=== PATIENT | male | born 1985 | race Caucasian/White ===

== ENCOUNTER 2020-08-03 12:48 | Emergency (ER) | payer BC ==
--- NOTE | 2020-08-03 14:53 | CT ---
EXAMINATION TYPE: CT soft tissue neck w con DATE OF EXAM: 08/03/2020 HISTORY: Left sided neck swelling marked by BB. COMPARISON: NONE CT DLP: 258.9 mGycm. Automated Exposure Control for Dose Reduction was Utilized. TECHNIQUE: CT scan of the neck is performed with IV Contrast, patient injected with 100 mL of Isovue 300, axial images are obtained, coronal and sagittal reformatted images are reviewed. FINDINGS: Airway: [id number] emphysematous change with subpleural blebs scattered throughout the visualiz ed upper lungs. There is 1.5 x 1.7 x 2.7 cm rim-enhancing focal fluid collection left lung base on axial image 68 and sagittal image 49 consistent with developing small abscess. There is right sided nasopharyngeal and oropharyngeal airway deviation. Airway remains patent. Findings secondary to lucency suspected infect ion or cavitary spread to the adjacent mandible involving lateral for mandibular on sagittal images 5 3 through 55 for reference. There are prominent and enlarged left-sided neck lymph nodes. For referen ce series 2.0 x 1.6 cm lymph node near the carotid and jugular vessels on axial image 59. Multiple ad ditional enlarged lymph nodes are present. Prominent/borderline abnormal right-sided neck adenopathy also identified. There is 1.9 x 1.0 cm axial image 59 in the posterior cervical triangle noted for re ference. Asymmetric effacement of the left piriform sinus. Parotid/submandibular glands: No gross abnormality seen. Carotid/Vascular Structures: No significant abnormality is seen. Osseous Structures: No additional significant abnormality. Other: Severe resection above. IMPRESSION: There is 2.7 cm rim-enhancing left meño pharyngeal fluid collection or developing abscess. Source may be dental spread from 4 lateral most left mandibular teeth. Correlate clinically. Mass ef fect on airway deviated to right of midline which remains patent. Prominent left greater than right n sherly adenopathy noted. Consider follow-up CT after treatment to rule out underlying adenopathy as find ing slightly more suspicious than just based on reactive changes.
[2020-08-03] MEDS ORDERED: BENZOCAINE SPRAY 1 CAN MUCOUS MEM STA (15:35)
[2020-08-03] MEDS ORDERED: LIDOCAINE 1%-EPI 1:100,000 20 ML VIAL SQ STA (15:36)
[2020-08-03] MEDS ORDERED: AMPICILLIN-SULBACTAM 3 GM in SODIUM CHLORIDE 0.9% 100 ML IVPB STA (15:57)
[2020-08-03] MEDS ORDERED: DEXAMETHASONE SOD PHOSPHATE 10 MG/ML 1 ML VIAL IV STA (15:59)
--- NOTE | 2020-08-03 15:59 | ED ---
Disposition Referrals: None,Stated [Primary Care Provider] - 1-2 days Procedures - [place] Protocol (Time Out) Procedure Performed:: Incision and drainage of left tonsilar abscess Performing Provider: Tre Jaffe Nurse: Courtney Ruby Patient Identification (2 identifiers required): Chart, Verbal, Arm Band, Birthdate Patient/Legal Chip Mucker has Confirmed: Identity, Site, Procedure, Consent Site: left tonsil Site Marked: Not Applicable Site Verified With Patient/Guardian: Yes - Incision & Drainage Consent Obtained: verbal consent Site: other (peritonsillar abscess) Anesthetic Used: benzocaine 0.25% (hurricaine spray) Needle Aspiration Performed?: Yes (2 cc of purulent fluid) Irrigation Performed?: No I&D Drainage Obtained: Pus Patient Tolerated Procedure: well
--- NOTE | 2020-08-03 16:23 | ED ---
ENT HPI - General Chief complaint: ENT Stated complaint: ENT Time Seen by Provider: 08/03/20 14:04 Source: patient Mode of arrival: ambulatory Limitations: no limitations - History of Present Illness Initial comments: Patient is a 35-year-old male presenting to the emergency Department with complaints of a sore throat over the past 2 weeks. Patient states he initially had a swollen lymph node on the right side of his neck, it seemed to go away but then the left side started increasing in pain and swelling over the past 10 days. Patient states he was placed on amoxicillin however he only took it for about 3-4 days because it made his stomach hurt. Patient states his symptoms have worsened significantly over the past 3-4 days. He has positive dysphagia, cough, decreased appetite, and intermittent dry heaves. Patient denies any fevers, chills, vomiting, abdominal pain. He states he thought that infection could be coming from some bad teeth in the left lower side. He states he was having some dental pressure before the sore throat started. He denies any chest pain or shortness of breath. He has no further complaints at this time. Upon arrival to the ER his vital signs are stable. - Related Data Previous Rx's Medication Instructions Recorded Amoxicillin/Potassium Clav 1 tab PO BID 7 Days #14 tab 08/03/20 [Augmentin 875-125 Tablet] Ondansetron Odt [Zofran Odt] 4 mg PO Q8HR PRN #10 tab 08/03/20 Allergies Allergy/AdvReac Type Severity Reaction Status Date / Time amoxicillin AdvReac Nausea Verified 08/03/20 16:10 Review of Systems ROS Statement: Those systems with pertinent positive or pertinent negative responses have been documented in the HPI. ROS Other: All systems not noted in ROS Statement are negative. Past Medical History Past Medical History: No Reported History History of Any Multi-Drug Resistant Organisms: None Reported Past Surgical History: No Surgical Hx Reported Past Psychological History: No Psychological Hx Reported Smoking Status: Current every day smoker Past Alcohol Use History: None Reported Past Drug Use History: None Reported General Exam - General Exam Comments Initial Comments: GENERAL: Patient is well-developed and well-nourished. Patient is nontoxic and in moderate distress. HEAD: Atraumatic, normocephalic. EYES: Pupils equal round and reactive to light, extraocular movements intact, sclera anicteric, conjunctiva are normal. Eyelids were unremarkable. ENT: TMs normal, nares patent, left tonsillar enlargement with abscess present, moderate deviation of the airway towards the right. Moist mucous membranes. NECK: Normal range of motion, Tender with lymphadenopathy or JVD. LUNGS: Unlabored respirations. Breath sounds clear to auscultation bilaterally and equal. No wheezes rales or rhonchi. HEART: Regular rate and rhythm without murmurs, rubs or gallops. ABDOMEN: Soft, nontender, normoactive bowel sounds. No guarding, no rebound. No masses appreciated. : Deferred MUSCULOSKELETAL: Normal extremities with adequate strength and normal range of motion, no pitting or edema. No clubbing or cyanosis. NEUROLOGICAL: Patient is alert and oriented x 3. Motor and sensory are also intact. Cranial nerves II through XII grossly intact. Symmetrical smile. Normal speech, normal gait. PSYCH: Normal mood, normal affect. SKIN: Warm, Dry, normal turgor, no rashes or lesions noted. Limitations: no limitations Course Vital Signs 08/03/20 08/03/20 08/03/20 13:05 15:22 17:01 Temperature 99.3 F 99.1 F 99 F Pulse Rate 102 H 76 90 Respiratory 18 16 18 Rate Blood Pressure 110/75 117/68 114/73 O2 Sat by Pulse 96 97 95 Oximetry Procedures - [place] Protocol (Time Out) Procedure Performed:: Incision and drainage of left tonsilar abscess Performing Provider: Tre Jaffe Nurse: Courtney Ruby Patient Identification (2 identifiers required): Chart, Verbal, Arm Band, Birthdate Patient/Legal Document Review Specialist has Confirmed: Identity, Site, Procedure, Consent Site: left tonsil Site Marked: Not Applicable Site Verified With Patient/Guardian: Yes Medical Decision Making - Medical Decision Making Patient is a 35-year-old male here with a left-sided tonsillar abscess does been developing over the past 10 days. He has positive dysphagia, pain, swelling present. On exam, he does have some moderate deviation of the airway towards the right. CT soft tissue of the neck reveals a 2.7 cm left pharyngeal fluid collection, airway deviated to the right, remains patent. Dr. Jaffe and myself performed an I&D of the left tonsillar abscess, we did get purulent drainage. He will be given a dose of Unasyn and Decadron. I will continue him on Augmentin outpatient and he will follow up with ENT. He is in agreement with this plan of care. Return parameters were discussed with the patient and he verbalized understanding. Case discussed with . Disposition Clinical Impression: Peritonsillar abscess Disposition: HOME SELF-CARE Condition: Stable Instructions (If sedation given, give patient instructions): Peritonsillar Abscess (ED) Additional Instructions: Please return to the Emergency Department if symptoms worsen or any other concerns. Take antibiotics as prescribed, with food. Finish entire course. Follow up with ENT as discussed. Prescriptions: Amoxicillin/Potassium Clav [Augmentin 875-125 Tablet] 1 tab PO BID 7 Days #14 tab Ondansetron Odt [Zofran Odt] 4 mg PO Q8HR PRN #10 tab PRN Reason: Nausea Is patient prescribed a controlled substance at d/c from ED?: No Referrals: None,Stated [Primary Care Provider] - 1-2 days Alfredo Keller DO [Doctor of Osteopathic Medicine] - 1-2 days
[2020-08-03 17:01] VITALS: BP 114/73; PULSE 90; RESP 18; TEMP 99
== END 2020-08-03 17:01 | disposition home or self-care (01) ==
LOC: EC 12:48
DX: J36 Peritonsillar abscess (principal); F17.200 Nicotine dependence, unspecified, uncomplicated
CPT/HCPCS: 70491; 99283; 42700; J1100; J0295; Q9967